=== PATIENT | female | born 1970 | race Caucasian/White ===

== ENCOUNTER 2018-02-27 12:31 | Emergency (ER) | payer BC, OTHER ==
[2018-02-27] MEDS: diazePAM 10 MG TAB PO (13:24)
[2018-02-27] MEDS: IBUPROFEN 600 MG TAB PO (13:24)
== END 2018-02-27 13:28 | disposition home or self-care (01) ==
LOC: M ED 12:31
DX: M54.12 Radiculopathy, cervical region (principal); R94.31 Abnormal electrocardiogram [ECG] [EKG]; K21.9 Gastro-esophageal reflux disease without esophagitis; Z87.891 Personal history of nicotine dependence; Z88.0 Allergy status to penicillin; Z79.899 Other long term (current) drug therapy
CPT/HCPCS: 93005